=== PATIENT | male | born 1950 | race Caucasian/White ===

== ENCOUNTER 2021-12-03 07:50 | Outpatient (CLI) | payer MEDICARE, SELFPAY | END 2021-12-03 07:51 | disposition home or self-care (01) | LOC: ANHAUDIO 07:52 | PROVIDERS: PCP Internal Medicine; Visit Provider Otolaryngology | DX: H90.3 Sensorineural hearing loss, bilateral (principal) | CPT/HCPCS: 92557; 92567 ==

== ENCOUNTER 2022-08-19 08:30 | Outpatient (CLI) | payer MEDICARE, SELFPAY ==
--- NOTE | ~2022-08-19 | US_ITS ---
EXAMINATION: US art doppler w press LE BI DATE: 08/19/2022 22:03 INDICATION: Peripheral vascular disease, unspecified. TECHNIQUE: Segmental pressures and plethysmographic and Doppler waveforms of the brachial and lower e xtremity arteries were obtained. COMPARISON: None. FINDINGS: Right and left brachial artery pressures of 131 mm Hg and 137 mm Hg, respectively, are concordant (no rmal difference <= 30 mmHg). The right high-thigh pressure index is 1.22 (normal > 1.2). The right ankle-brachial index (TERRENCE) is 1 .25 (normal >= 0.9-1.0). The right great toe-brachial index (TBI) is 0.52 (normal >= 0.65). Arterial Doppler waveforms are at least triphasic from common femoral artery to posterior tibial artery and bi phasic in dorsalis pedis.. The left high-thigh pressure index is 1.11. The left TERRENCE is 1.18. The left TBI is 1.12. Arterial Dopp ler waveforms are at least triphasic from common femoral artery to the ankle. IMPRESSION: 1. Mildly decreased right TBI and normal right TERRENCE, consistent with right-sided arterial occlusive di sease. Note that TERRENCE may be overestimated if arteries are calcified. 2. No significant left-sided arterial occlusive disease. Reviewed, dictated and finalized at location A. IMPRESSION: 1. Mildly decreased right TBI and normal right TERRENCE, consistent with right-sided arterial occlusive disease. Note that TERRENCE may be overestimated if arteries are calcified. 2. No significant left-sided arterial occlusive disease.
== END 2022-08-19 08:31 | disposition home or self-care (01) ==
LOC: ANHIMG 17:59
PROVIDERS: PCP Internal Medicine; Visit Provider Internal Medicine
DX: I73.9 Peripheral vascular disease, unspecified (principal)
CPT/HCPCS: 93923

== ENCOUNTER 2022-10-28 09:41 | Emergency (ER) | payer OTHER, MEDICARE, SELFPAY ==
--- NOTE | 2022-10-28 09:42 | ED.UPPEXIN ---
HPI - Extremity Injury (Upper) General Chief Complaint: Extremity Injury, Upper Stated Complaint: R HAND INJURY Time Seen by Provider: 10/28/22 09:42 Source: patient Mode of arrival: ambulatory Limitations: no limitations History of Present Illness HPI narrative: Flavio is a 72-year-old male patient presenting to the clinic today with complaints of a right hand injury. He reports he was at physical therapy and a ball went underneath a treadmill and he caught his hand on the treadmill and this caused a skin tear to the right dorsal hand. This injury occurred approximately 30 minutes prior to arrival. Also has a very small cut over the D IP joint of the right thumb. tetanus shot is up-to-date and bleeding is controlled. Related Data Home Medications Medication Instructions Recorded Confirmed sertraline 50 mg tablet 50 mg PO DAILY 03/27/19 10/28/22 cholecalciferol (vitamin D3) 25 25 mcg PO DAILY 08/04/22 10/28/22 mcg (1,000 unit) capsule gabapentin 100 mg capsule 100 mg PO DAILY 08/04/22 10/28/22 mecobalamin (vitamin B12) 1,000 1,000 mcg PO DAILY 08/04/22 10/28/22 mcg chewable tablet pyridoxine (vitamin B6) 25 mg 25 mg PO DAILY 08/04/22 10/28/22 tablet Allergies Allergy/AdvReac Type Severity Reaction Status Date / Time No Known Allergies Allergy NONE Verified 10/28/22 09:59 Review of Systems Review of Systems: Pertinent positives per HPI. Patient denies any fever, chills, rash, headache, visual changes, dizziness, cough, runny nose, sore throat, shortness of breath, chest pain, palpitations, nausea, vomiting, diarrhea, constipation, abdominal pain, or any urinary issues. [facility] Past Medical History Medical History Benign colonic polyp Prostate cancer Family History Family History Sibling Family history of thyroid disease Patient's sister is in good health Patient's brother is in good health Mother Family history of osteoporosis Cerebrovascular accident Patient's mother is Family history of lymphoma Father Family history of pancreatic cancer Patient's father is Other Family history of malignant neoplasm Social History Social History Smoking status: Never smoker Second hand tobacco smoke exposure: No Alcohol intake: current Drinks per week: 1 Substance use: never Lack of Transportation: No Lack of Food: Never True Current Housing: I Have Housing Concerned About Future Housing: No Difficulty Paying Gas/Electric Bills: No Difficulty Paying for Meds: No Currently Unemployed: YES Education: Master's Degree or Higher Difficulty w/ Childcare or Family Care: No Comments At the time of my signature, I reviewed and agree with the nursing past medical, surgical, social, and family history. There is no relevant family history pertinent to the patient complaint. Exam Narrative: General: Well-developed, well nourished, in no apparent distress Head: Normocephalic, atraumatic. Cardio: Regular rate and rhythm, s1 and s2 normal, no murmur appreciated. Resp: Clear to auscultation bilaterally, no rhonchi, rales, wheezing or rubs. Integumentary: [place], warm, and dry, skin tear type 2 measuring 3 cm by 2 cm to the right dorsal hand proximal to the thumb and index finger, 0.25cm cut to the right dorsal thumb over the dip joint. Course Course Emergency Course: Portions of this record may have been created with voice recognition software. Level of Care: Express Care Visit Vital Signs Vital signs: Vital signs reviewed Procedures Laceration Laceration 1: Date: 10/28/22 Site: hand Side (If applicable): right Size (cm): 3 (3x2 cm) Description: flap and irregular Depth: simple, single layer Pre-repair: wou
[2022-10-28 09:55] VITALS: BP 128/78; PULSE 67; RESP 16; TEMP 36.6; O2SAT 99
== END 2022-10-28 10:15 | disposition home or self-care (01) ==
PROVIDERS: Emergency Provider Nurse Practitioner Family; PCP Internal Medicine
DX: S61.411A Laceration without foreign body of right hand, initial encounter (principal); W22.8XXA Striking against or struck by other objects, initial encounter; Z85.46 Personal history of malignant neoplasm of prostate
CPT/HCPCS: 99212; G0463

== ENCOUNTER 2023-12-14 12:53 | Outpatient (CLI) | payer MEDICARE, SELFPAY ==
--- NOTE | ~2023-12-14 | PE_ITS ---
EXAMINATION: PET_PETPSMAST_PT DATE: 12/14/2023 15:22 INDICATION: Prostate cancer. TECHNIQUE: 5.967 mCi of Ga-68 gozetotide was administered intravenously. Low dose computed tomography (CT) images were acquired from the base of the brain to the proximal thighs for attenuation correcti on and anatomic localization. Automated exposure control was employed. Dose-length product (DLP) was 1083 mGy-cm. Positron emission tomography (PET) images were acquired in the same distribution. COMPARISON: None FINDINGS: Head/neck: There are no pathologically enlarged lymph nodes. Chest: The lungs demonstrate mild atelectasis. There is a 5 mm nodule at minor fissure, likely benign . No pleural effusion. The heart size is normal. No pericardial effusion. There are coronary artery c alcifications. There is mild bilateral gynecomastia. Abdomen/pelvis/proximal thighs: There are cysts in the liver measuring up to 11 mm. The gallbladder, spleen, pancreas, adrenal glands, and kidneys are normal. There are bilateral inguinal hernias contai damir fat. There is soft tissue in the prostatectomy bed without increased activity. There is focal in creased activity in the anus and rectum with maximum CT of 4.2. There are no dilated loops of bowel. The appendix is normal. There are no pathologically enlarged lymph nodes. There is no free intraperit rangel fluid. There is no osseous malignancy. IMPRESSION: 1. Focal increased activity in the anus and rectum, which may be involvement by prostate cancer. Reviewed, dictated and finalized at location A.
== END 2023-12-14 12:54 | disposition home or self-care (01) ==
PROVIDERS: PCP Nurse Practitioner; Visit Provider Urology
DX: C61 Malignant neoplasm of prostate (principal)
CPT/HCPCS: 78815; A9596

== ENCOUNTER 2024-08-25 13:28 | Outpatient (CLI) | payer MEDICARE, SELFPAY ==
--- NOTE | ~2024-08-25 | MR_ITS ---
EXAMINATION: MR pelvis wo/w con DATE: 08/25/2024 15:11 INDICATION: Prostate cancer TECHNIQUE: Magnetic resonance imaging (MRI) of the pelvis was performed without and with 19 mL Multih ance intravenous contrast. [place]field sequences of the pelvis included axial and coronal T2-weighted S S FSE, coronal 2D FIESTA, axial T1-weighted FSPGR, axial dual-echo T1-weighted FSPGR and axial T1 denny ghted LAVA. Small field of view sequences included axial, sagittal and coronal T2-weighted FSE cente red on the uterus and adnexa. Postcontrast sequences included a time course axial T1-weighted LAVA w ith full-field of view of the pelvis. COMPARISON: PET/CT dated 12/14/2023 FINDINGS: The prostate measures 3.7 x 3.0 x 3.8 cm, inwardly bulging the base of the bladder. There are a few f oci of susceptibility artifact at the caudal aspect of the prostate which could be related to prior s urgery, radiotherapy seeds or fiducials markers. The bladder is otherwise unremarkable. Seminal vesic les are normal. The visualized portions of bowels are unremarkable. Specifically the anus and rectum appear normal. Very small fat-containing left inguinal hernia. No pathologically enlarged pelvic or i nguinal lymphadenopathy. Bones are unremarkable with normal marrow signal throughout. IMPRESSION: 1. Prostate measures 3.7 x 3.0 x 3.8 cm with foci susceptibility artifact along its inferior margin w hich could be related to prior surgery, brachial therapy seeds or fiducials markers. 2. Otherwise unremarkable pelvic MRI with no evident metastatic disease. Reviewed, dictated and finalized at location A. IMPRESSION: 1. Prostate measures 3.7 x 3.0 x 3.8 cm with foci susceptibility artifact along its inferior margin which could be related to prior surgery, brachial therapy seeds or fiducials markers. 2. Otherwise unremarkable pelvic MRI with no evident metastatic disease.
== END 2024-08-25 13:29 | disposition home or self-care (01) ==
PROVIDERS: PCP Internal Medicine; Visit Provider Radiology Radiation Oncology
DX: C61 Malignant neoplasm of prostate (principal)
CPT/HCPCS: 72197; A9577